=== PATIENT | male | born 1945 | race Caucasian/White ===

== ENCOUNTER 2020-08-11 21:45 | Emergency (ER) | payer OTHER ==
[2020-08-11 22:04] VITALS: BMI 26.5
[2020-08-11] MEDS ORDERED: SODIUM CHLORIDE 1,000 ML IV STA (22:42)
[2020-08-11 23:30] LABS: BASO % 0.5 % (0-2.0); EOS % 0.2 % (0-4.5); HEMATOCRIT 41.7 % (35.4-49); HEMOGLOBIN 14.6 GM/dL (11.7-16.9); LYMPH % 12.1 % (8-40); MCH 33.9 pg (25.7-33.7); MEAN PLT VOLUME 7.3 fl (7.5-11.1); MONO % 6.6 % (3.8-10.2); NEUT % 80.6 % (42.8-82.8); PLATELET COUNT 182 K/MM3 (134-434); RDW 12.6 % (11.9-15.9); WHITE BLOOD COUNT 7.8 K/mm3 (4.0-10.0)
[2020-08-11 23:38] LABS: INR 1.01 (0.83-1.09); PROTHROMBIN TIME (PATIENT) 12.4 SEC (9.7-13.0)
[2020-08-11 23:41] LABS: ACTIVATED PTT 29.2 SECONDS (25.2-36.5)
[2020-08-11 23:49] LABS: CHLORIDE 100 mmol/L (98-107); SODIUM 136 mmol/L (136-145)
[2020-08-11 23:51] LABS: ANION GAP 12 MMOL/L (8-16); BLOOD UREA NITROGEN 12.9 mg/dL (7-18); CALCIUM 8.8 mg/dL (8.5-10.1); CO2 23 mmol/L (21-32)
[2020-08-11 23:52] LABS: GLUCOSE,RANDOM 143 mg/dL (74-106)
[2020-08-11 23:54] LABS: SGOT/AST 73 U/L (15-37); SGPT/ALT 48 U/L (13-61)
[2020-08-11 23:55] LABS: CREATININE 0.9 mg/dL (0.55-1.3)
[2020-08-11 23:56] LABS: BILIRUBIN,TOTAL 0.7 mg/dL (0.2-1); TOT PROT 7.1 g/dl (6.4-8.2)
[2020-08-11 23:57] LABS: ALK PHOS 76 U/L (45-117)
[2020-08-12] MEDS ORDERED: CLINDAMYCIN 600MG PREMIX IVPB 600 MG/50 ML BAG IVPB ONE ×2 (01:18→02:07)
[2020-08-12] MEDS ORDERED: chlordiazePOXIDE HCL 25 MG CAPSULE PO ONE ×3 (01:24→12:29)
[2020-08-12] MEDS ORDERED: chlordiazePOXIDE HCL 25 MG CAPSULE ONE ×3 (02:07→12:33)
[2020-08-12 10:49] VITALS: BP 146/97; PULSE 110
[2020-08-12 13:24] VITALS: TEMP 98.6
== END 2020-08-12 13:24 | disposition short-term general hospital (02) ==
LOC: JER 21:45
PROC: 3E033NZ Introduction of Analgesics, Hypnotics, Sedatives into Peripheral Vein, Percutaneous Approach (ICD-10-PCS; principal; 2020-08-12)
PROC: 3E0337Z Introduction of Electrolytic and Water Balance Substance into Peripheral Vein, Percutaneous Approach (ICD-10-PCS; 2020-08-12)
DX: S02.402A Zygomatic fracture, unspecified side, initial encounter for closed fracture (principal)
CPT/HCPCS: 36415; 70450-TC; 70486-TC; 72125-TC; 80053; 80307; 82550; 84484; 85025; 85610; 85730; 86850; 86900; 86901; 93005; 93010; 99285-25

== ENCOUNTER 2021-11-25 00:05 | Inpatient (IN) | payer OTHER ==
[2021-11-25 00:25] VITALS: BMI 29.7
[2021-11-25] MEDS ORDERED: methylPREDNISolone NA SUCC 125 MG/2 ML VIAL IVPUSH ONE (00:47)
[2021-11-25] MEDS: ALBUTEROL SO4 2.5/IPRATROPIUM 0.5 INH SOL 3 ML VIAL.NEB. NEB SCH ×4 (01:00→02:00)
[2021-11-25] MEDS ORDERED: methylPREDNISolone NA SUCC 125 MG/2 ML VIAL ONE (01:01)
[2021-11-25 01:28] LABS: BASO % 0.4 % (0-2.0); EOS % 0.1 % (0-4.5); HEMATOCRIT 43.9 % (35.4-49); HEMOGLOBIN 15.3 GM/dL (11.7-16.9); LYMPH % 9.3 % (8-40); MCH 34.6 pg (25.7-33.7); MCHC 34.8 g/dl (32.0-35.9); MEAN CELL VOLUME 99.3 fl (80-96); MEAN PLT VOLUME 7.4 fl (7.5-11.1); MONO % 6.7 % (3.8-10.2); NEUT % 83.5 % (42.8-82.8); PLATELET COUNT 213 10^3/uL (134-434); RBC 4.42 M/mm3 (4.00-5.60); RDW 12.9 % (11.9-15.9)
[2021-11-25 01:49] LABS: CALCIUM 8.8 mg/dL (8.5-10.1)
[2021-11-25 01:50] LABS: ALBUMIN 3.9 g/dl (3.4-5.0); BLOOD UREA NITROGEN 10.3 mg/dL (7-18)
[2021-11-25 01:53] LABS: CREATININE 1.2 mg/dL (0.55-1.3)
[2021-11-25 01:55] LABS: BILIRUBIN,TOTAL 0.5 mg/dL (0.2-1); TOT PROT 7.4 g/dl (6.4-8.2)
[2021-11-25 01:56] LABS: N-TERMINAL BNP 52.2 pg/ml (5-450)
[2021-11-25 09:10] LABS: ARTERIAL BLD GAS O2 SATURATION 95.8 % (95-98); ARTERIAL BLOOD GAS BASE EXCESS -5.7 mmol/L (-2-2); ARTERIAL BLOOD GAS PO2 78.4 mmHg (80-100); ARTERIAL BLOOD GAS pH 7.404 (7.350-7.450)
[2021-11-25 09:11] LABS: ALLENS TEST POSITIVE
[2021-11-25] MEDS ORDERED: ENOXAPARIN NA (PORCINE) 40 MG/0.4 ML DISP.SYRIN SQ ONE (09:32)
[2021-11-25] MEDS: ENOXAPARIN NA (PORCINE) 40 MG/0.4 ML DISP.SYRIN SQ SCH (10:29)
[2021-11-25] MEDS ORDERED: ALBUTEROL SO4 2.5/IPRATROPIUM 0.5 INH SOL 3 ML VIAL.NEB. NEB PRN (12:41)
[2021-11-25] MEDS ORDERED: ACETAMINOPHEN 325 MG TABLET (FP) PO PRN (12:41)
[2021-11-25] MEDS ORDERED: LORazepam 2 MG/ML SDV VIAL IVPUSH PRN (15:00)
[2021-11-25] MEDS: methylPREDNISolone NA SUCC 40 MG/1 ML VIAL IVPUSH SCH ×2 (15:24→22:53)
[2021-11-25] MEDS: FOLIC ACID 1 MG TABLET (FP) PO SCH (15:25)
[2021-11-25] MEDS: THIAMINE HCL 100 MG TABLET (FP) PO SCH (22:53)
[2021-11-25] MEDS: ATORVASTATIN CA 10 MG TABLET (FP) PO SCH (22:53)
[2021-11-25] MEDS ORDERED: LISINOPRIL 20 MG TABLET PO ONE (23:57)
[2021-11-26] MEDS: methylPREDNISolone NA SUCC 40 MG/1 ML VIAL IVPUSH SCH ×4 (02:32→22:54)
[2021-11-26 02:45] LABS: PH,URINE 5.5 (5.0-8.0); URINE APPEARANCE TURBID; URINE BILIRUBIN 1+ (NEGATIVE); URINE COLOR ORANGE; URINE GLUCOSE (UA) NEGATIVE (NEGATIVE); URINE KETONE 1+ (NEGATIVE); URINE LEUK ESTERASE NEGATIVE (NEGATIVE); URINE NITRITE NEGATIVE (NEGATIVE); URINE PROTEIN TRACE (NEGATIVE)
[2021-11-26 03:11] LABS: URINE BARBITURATES NEGATIVE (NEGATIVE)
[2021-11-26 03:12] LABS: COCAINE, UR NEGATIVE (NEGATIVE)
[2021-11-26 03:42] LABS: METHADONE, UR NEGATIVE (NEGATIVE); OPIATES, URI NEGATIVE (NEGATIVE); PHENCYCLIDINE,URINE NEGATIVE (NEGATIVE); URINE AMPHETAMINES NEGATIVE (NEGATIVE); URINE BENZODIAZEPINES NEGATIVE (NEGATIVE)
[2021-11-26] MEDS: FUROSEMIDE 40 MG TABLET (FP) PO SCH (10:29)
[2021-11-26] MEDS: ENOXAPARIN NA (PORCINE) 40 MG/0.4 ML DISP.SYRIN SQ SCH (10:29)
[2021-11-26] MEDS: LISINOPRIL 20 MG TABLET PO SCH (10:29)
[2021-11-26] MEDS: FOLIC ACID 1 MG TABLET (FP) PO SCH (10:29)
[2021-11-26] MEDS: THIAMINE HCL 100 MG TABLET (FP) PO SCH ×2 (10:29→22:54)
[2021-11-26 10:30] LABS: HEMATOCRIT 46.5 % (35.4-49); HEMOGLOBIN 15.9 GM/dL (11.7-16.9); MCHC 34.2 g/dl (32.0-35.9); MEAN CELL VOLUME 99.4 fl (80-96); MEAN PLT VOLUME 8.3 fl (7.5-11.1); PLATELET COUNT 221 10^3/uL (134-434); RBC 4.67 M/mm3 (4.00-5.60); RDW 12.7 % (11.9-15.9); WHITE BLOOD COUNT 12.1 K/mm3 (4.0-10.0)
[2021-11-26 10:40] LABS: INR 1.05 (0.83-1.09); PROTHROMBIN TIME (PATIENT) 12.1 SEC (9.7-13.0)
[2021-11-26 10:41] LABS: ACTIVATED PTT 27.7 SECONDS (25.2-36.5)
[2021-11-26 11:00] LABS: ALBUMIN 3.8 g/dl (3.4-5.0); BLOOD UREA NITROGEN 24.7 mg/dL (7-18); CALCIUM 9.4 mg/dL (8.5-10.1); MAGNESIUM 2.2 mg/dL (1.8-2.4)
[2021-11-26 11:03] LABS: CREATININE 1.1 mg/dL (0.55-1.3); PHOSPHOROUS 3.5 mg/dL (2.5-4.9)
[2021-11-26 11:04] LABS: BILIRUBIN,TOTAL 1.2 mg/dL (0.2-1); TOT PROT 7.4 g/dl (6.4-8.2)
[2021-11-26 11:31] LABS: ANISOCYTOSIS 0; MACROCYTOSIS 0; PLATELET ESTIMATE NORMAL
[2021-11-26] MEDS: ATORVASTATIN CA 10 MG TABLET (FP) PO SCH (22:54)
[2021-11-27] MEDS: methylPREDNISolone NA SUCC 40 MG/1 ML VIAL IVPUSH SCH ×3 (03:52→17:49)
[2021-11-27] MEDS: LISINOPRIL 20 MG TABLET PO SCH (10:23)
[2021-11-27] MEDS: FUROSEMIDE 40 MG TABLET (FP) PO SCH (10:23)
[2021-11-27] MEDS: FOLIC ACID 1 MG TABLET (FP) PO SCH (10:23)
[2021-11-27] MEDS: THIAMINE HCL 100 MG TABLET (FP) PO SCH ×2 (10:23→21:19)
[2021-11-27] MEDS: ENOXAPARIN NA (PORCINE) 40 MG/0.4 ML DISP.SYRIN SQ SCH (10:23)
[2021-11-27] MEDS: ATORVASTATIN CA 10 MG TABLET (FP) PO SCH (21:19)
[2021-11-28] MEDS: methylPREDNISolone NA SUCC 40 MG/1 ML VIAL IVPUSH SCH ×3 (02:48→18:15)
[2021-11-28] MEDS: FOLIC ACID 1 MG TABLET (FP) PO SCH (11:07)
[2021-11-28] MEDS: FUROSEMIDE 40 MG TABLET (FP) PO SCH (11:07)
[2021-11-28] MEDS: ENOXAPARIN NA (PORCINE) 40 MG/0.4 ML DISP.SYRIN SQ SCH (11:07)
[2021-11-28] MEDS: LISINOPRIL 20 MG TABLET PO SCH (11:07)
[2021-11-28] MEDS: THIAMINE HCL 100 MG TABLET (FP) PO SCH ×2 (11:07→22:01)
[2021-11-28] MEDS: ATORVASTATIN CA 10 MG TABLET (FP) PO SCH (22:01)
[2021-11-29] MEDS: methylPREDNISolone NA SUCC 40 MG/1 ML VIAL IVPUSH SCH (01:22)
[2021-11-29 02:25] VITALS: BP 148/90; PULSE 73; RESP 20; TEMP 98.3
== END 2021-11-29 08:14 | disposition home or self-care (01) | DRG 897 ==
LOC: JER 00:05 → JERBED 05:07 → J5S 15:04
PROVIDERS: ADMIT Internal Medicine; ATTEND Family Medicine
PROC: HZ2ZZZZ Detoxification Services for Substance Abuse Treatment (ICD-10-PCS; principal; 2021-11-25)
DX: F10.129 Alcohol abuse with intoxication, unspecified (principal); J98.11 Atelectasis; I10 Essential (primary) hypertension; E78.5 Hyperlipidemia, unspecified; R09.02 Hypoxemia; R00.0 Tachycardia, unspecified; R79.89 Other specified abnormal findings of blood chemistry
CPT/HCPCS: 0241U-QW; 36415; 36600; 70450-TC; 71045-TC-FY; 71275-TC; 72125-TC; 80053; 80307; 81003; 82803; 83036; 83735; 83880; 84100; 84484; 85025; 85610; 85730; 87086; 87186; 93005; 93010; 93306-TC; 94761; 99285-25; Q9967